=== PATIENT | female | born 1930 | race Caucasian/White ===

== ENCOUNTER → 2017-01-07 | Outpatient (CLI) | payer OTHER ==
[2016-07-18 04:30] VITALS: BP 112/65
--- NOTE | 2017-01-07 13:04 | MG ---
HISTORY: SCREENING Comparison: 07/09/2015 FINDINGS: Bilateral CC and MLO projections of the right and left breast were obtained. Scattered fibroglandul ar tissue is seen to be present. No significant architectural distortion, mass or clustered microca lcifications can be observed to suggest malignancy. No skin thickening or nipple retraction is appr eciated. No pathological lymphadenopathy can be identified. IMPRESSION: NO RADIOGRAPHIC EVIDENCE OF MALIGNANCY. ACR CATEGORY I - NEGATIVE EXAM. FOLLOW-UP EXAM 1 YEAR. Diagnostic CAD was utilized and reviewed. * 0 (ZERO) - ASSESSMENT INCOMPLETE; ADDITIONAL IMAGING IS NEEDED. * 1/ (ONE) - NEGATIVE. * 2/II (TWO) - BENIGN FINDINGS. * 3/III (THREE) - PROBABLY BENIGN FINDING; SHORT INTERVAL FOLLOW-UP SUGGESTED. * 4/IV (FOUR) - SUSPICIOUS ABNORMALITY; BIOPSY SHOULD BE CONSIDERED. * 5/V - HIGHLY SUSPICIOUS OF MALIGNANCY; BIOPSY SHOULD BE PERFORMED. A NEGATIVE X-RAY REPORT SHOULD NOT DELAY BIOPSY IF A DOMINANT OR CLINICALLY SUSPICIOUS MASS IS PRESENT; 4 TO 8 PERCENT OF CANCERS ARE NOT IDENTIFIED BY X-RAY. A NEG ATIVE REPORT MAY REINFORCE THE CLINICAL IMPRESSION. ADENOSIS AND DENSE BREASTS MAY OBSCURE AN UNDER LYING NEOPLASM. Reported By:
== END ==
LOC: RAD 10:54
PROVIDERS: ATTEND Specialist
DX: Z12.31 Encounter for screening mammogram for malignant neoplasm of breast (principal)
CPT/HCPCS: 77067

== ENCOUNTER 2017-03-08 17:25 | Observation (INO) | payer OTHER ==
[2017-03-08 17:46] VITALS: BMI 25.7
--- NOTE | 2017-03-08 17:54 | DR.GENAD ---
HPI - PCP Primary Care Physician: RITA HESS - HPI Comment HPI Comment: DRIVING HOME FROM SHOPPING, PATIENT BECME UNRESPONSIVE BUT WAS BREATHING. SLOWLY STARTED RESPONDING BUT WAS CONFUSE. STILL CONFUSE IN ED. NO PREVIOUS HISTORY. NO HISTORY OF SEIZURS. - Complaint/Symptoms Chief Complaint Doctors Comments: AMS, SYNCOPAL EPISODE. Chief Complaint:: PT TO ER WITH HER FAMILY AND HIS SON STATES SHE WAS UNRESPONSIVE WHEN THEY WERE DRIVING BACK FROM [employer]... FAMILY DENIES ANY PAIN MEDS PT IS SCHEDULED FOR A STRESS TEST WITH RITA HESS IN THE AM .. Self Treatment fo Chief Complaint: PT IS LETHARGIC BS 92 ... - Nurses notes reviewed Nurses Notes Review: Yes - Source History Provided: Patient, Family Member - Mode of Arrival Mode of Arrival: Wheelchair - Timing Onset of Chief Complaint: 03/08/17 Came on: Suddenly - Duration Duration: Since Onset Duration: Hours - Severity Severity: Moderate PMH - PMH Past Medical History: Yes Past Medical History: Hypertension Past Medical History Comment: CHF, DEMENTIA Past Surgical History: No Surgical History: Hysterectomy - Family History History of Family Medical Conditions: No Family Medical History: Cancer, Coronary Artery Disease, Sudden Cardiac - Social History Does patient currently use any type of tobacco product: No Have you used tobacco products in the last 12 months: No Type of Tobacco Use: None Does any household member use tobacco: No Alcohol Use: None Do you use any recreational Drugs:: No Lives With: Family Lives Where: Home - infectious screening In the last 2 months have you had wt loss of >10#?: NO Have you had fever, night sweats or hemotysis?: No Have you traveled outside the country in the last 6 months?: No Isolation: Standard ROS - Review of Systems Constitutional: Weakness, Fatigue. negative: Chills, Fever Eyes: No Symptoms Reported. negative: Eye Pain, Discharge ENTM: No Symptoms Reported. negative: Ear Pain, Nose Discharge, Mouth Pain, Throat Pain Respiratoy: Non-Productive Cough, Short of Breath. negative: Productive Cough, Wheezing, Hemoptysis Cardiovascular: No Symptoms Reported, Syncope. negative: Chest Pain, Edema Gastrointestinal/Abdominal: negative: Abdominal Pain, Diarrhea, Nausea, Vomiting Genitourinary: negative: Dysuria, Frequency, Hematuria Neurological: Headache, Weakness, Dizziness Musculoskeletal: Muscle Pain Integumentary: No Symptoms Reported Hematologic/Lymphatic: No Symptoms Reported Endocrine: No Symptoms Reported All Other Systems: Reviewed and Negative PE - Vital Signs Vitals: Pulse Rate [Apical] 82 Pulse Rate 100 Respiratory Rate 18 Blood Pressure [Left Arm] 163/76 Blood Pressure 159/77 O2 Sat by Pulse Oximetry 99 - General Limitations: No Limitations General Appearance: Alert - Head Head Exam: Normal Inspection - Eyes Eye exam: Normal Appearance - ENT ENT Exam: Normal External Ear Exam External Ear Exam: Normal External Inspection TM/Canal Exam: Bilateral Normal Nose Exam: Normal Nose Exam Mouth Exam: Normal Inspection Throat Exam: Normal Inspection - Neck Neck Exam: Trachea Midline. negative: Tenderness, Meningismus, Lymphadenopathy - Chest Chest Inspection: Symmetric Chest Wall Rise - Respiratory Respiratory Exam: Normal Lung Sounds Bilat, Prolonged Expiratory Phase Respiratory Exam: Bilateral Rhonchi, Lower Rhonchi - Cardiovascular Cardiovascular Exam: Regular Rate, Normal Rhythm, Normal Heart Sounds - Abdominal Exam Abdominal Exam: Normal Bowel Sounds, Soft. negative: Tenderness - Extremities Extremities Exam: Normal Inspection - Back Back Exam: Normal Inspection - Neurologic Neurological Exam: Alert, Other (CONGUSE SLIGHTLY.) - Psychiatric Psychiatric Exam: Agitated - Skin Skin Exam: Normal Color MDM - Additional Information Additional Information Obtained From: Family - Differential Diagnosis Differential Diagnosis: CVA, TIA, SYNCOPAL EPISODE, UA, MD Course - Treatment Treatment: SEE ORDERS. - Consultation Consultation Comments: DISCUSS PATIENT WITH DR. MUNOZ, HE WILL ADMIT PATIENT. - Education/Counseling Education/Counseling: Patient, Family, Education Educated On: Diagnosis, Needs for Follow Up ROR - Labs Reviewed Laboratory Results Reviewed?: Yes Result Diagrams: 03/09/17 05:40 03/09/17 05:40 Laboratory: WBC 8.8 X10^3/uL (3.6-10.0) 03/08/17 18:00 RBC 3.31 X10^6/uL (3.5-5.4) L 03/08/17 18:00 Hgb 11.0 g/dL (12.0-16.0) L 03/08/17 18:00 Hct 32.2 % (36.0-47.0) L 03/08/17 18:00 MCV 97.2 fL (80.0-100.0) 03/08/17 18:00 MCH 33.2 pg (27.0-34.0) 03/08/17 18:00 MCHC 34.1 g/dL (33.0-35.0) 03/08/17 18:00 RDW 14.1 % (11.6-16.5) 03/08/17 18:00 Plt Count 290 X10^3/uL (150.0-450.0) 03/08/17 18:00 MPV 7.6 fL (7.4-11.0) 03/08/17 18:00 Neut % 47.7 % (42.0-75.0) 03/08/17 18:00 Lymph % 37.3 % (21.0-51.0) 03/08/17 18:00 [place] % 10.2 % (0.0-13.0) 03/08/17 18:00 Eos % 3.4 % (0.9-2.9) H 03/08/17 18:00 Baso % 1.4 % (0.2-1.0) H 03/08/17 18:00 Neut # 4.2 x10^3/uL (2.2-4.8) 03/08/17 18:00 Lymph # 3.3 X10^3/uL (1.3-2.9) H 03/08/17 18:00 [place] # 0.9 x10^3/uL (0.3-0.8) H 03/08/17 18:00 Eos # 0.3 x10^3/uL (0.0-0.2) H 03/08/17 18:00 Baso # 0.1 X10^3/uL (0.0-0.1) 03/08/17 18:00 Absolute Nucleated RBC 0.0 /100WBC 03/08/17 18:00 INR Target Range - 03/08/17 18:00 INR 1.05 (0.8-1.3) 03/08/17 18:00 PTT 26.6 SECONDS (22.9-36.5) 03/08/17 18:00 PTT Comment - 03/08/17 18:00 Sodium 144 mmol/L (136-145) 03/08/17 18:00 Corrected Sodium TNP 03/08/17 18:00 Potassium 4.5 mmol/L (3.5-5.1) 03/08/17 18:00 Chloride 107 mmol/L (98-107) 03/08/17 18:00 Carbon Dioxide 27.9 mmol/L (21-32) 03/08/17 18:00 BUN 15 mg/dL (7-18) 03/08/17 18:00 Creatinine 1.20 mg/dL (0.55-1.02) H 03/08/17 18:00 Est GFR (MDRD) Af Amer 55 (>60) L 03/08/17 18:00 Est GFR (MDRD) Non-Af 45 (>60) L 03/08/17 18:00 Glucose 86 mg/dL (65-99) 03/08/17 18:00 Calcium 9.4 mg/dL (8.5-10.1) 03/08/17 18:00 Corrected Calcium TNP 03/08/17 18:00 Total Bilirubin 0.30 mg/dL (0.2-1.0) 03/08/17 18:00 AST 17 Units/L (15-37) 03/08/17 18:00 ALT 20 Units/L (12-78) 03/08/17 18:00 Alkaline Phosphatase 58 Units/L (46-116) 03/08/17 18:00 Creatine Kinase 71 Units/L (26-192) 03/08/17 18:00 CK-MB (CK-2) < 1.0 ng/mL (0-4.0) 03/08/17 18:00 CK/CKMB % Calc 1.4 % (<4) 03/08/17 18:00 Troponin I < 0.02 ng/mL (0-1.5) 03/08/17 18:00 B-Natriuretic Peptide 147 pg/mL (0-79) H 03/08/17 18:00 Total Protein 7.0 g/dL (6.4-8.2) 03/08/17 18:00 Albumin 3.4 g/dL (3.4-5.0) 03/08/17 18:00 Globulin 3.6 g/dL (2.5-4.5) 03/08/17 18:00 Albumin/Globulin Ratio 0.9 Ratio (1.1-2.1) L 03/08/17 18:00 Specimen Type Catherized urine 03/08/17 18:13 Urine Color Yellow (YELLOW) 03/08/17 18:13 Urine Appearance Clear (CLEAR) 03/08/17 18:13 Urine pH 7.0 (5.0 - 8.0) 03/08/17 18:13 Ur Specific [place] 1.005 (1.000-1.030) 03/08/17 18:13 Urine Protein Negative (NEGATIVE) 03/08/17 18:13 Urine Glucose (UA) Negative (NEGATIVE) 03/08/17 18:13 Urine Ketones Negative (NEGATIVE) 03/08/17 18:13 Urine Occult Blood 1+ (NEGATIVE) 03/08/17 18:13 Urine Nitrite Negative (NEGATIVE) 03/08/17 18:13 Urine Bilirubin Negative (NEGATIVE) 03/08/17 18:13 Urine Urobilinogen Normal (NORMAL) 03/08/17 18:13 Ur Leukocyte Esterase 1+ (NEGATIVE) 03/08/17 18:13 Urine RBC 0-3 /HPF (NEGATIVE) 03/08/17 18:13 Urine WBC 0-3 /HPF (NEGATIVE) 03/08/17 18:13 Ur Squamous Epith Cells Rare /HPF (NEGATIVE) 03/08/17 18:13 Urine Bacteria Trace /HPF (NEGATIVE) 03/08/17 18:13 Ur Culture Indicated? No/not indicated 03/08/17 18:13 - XRAY XRAY Interpreted by: Radiologist XRAY Findings: REPORT DISCUSS WITH FAMILY. - EKG Rhythm: NSR (EKG NOTED) - Diagnosis Discharge Problem: Syncopal episodes Qualifiers: Syncope type: unspecified Qualified Code(s): R55 - Syncope and collapse Altered mental state Qualifiers: Altered mental status type: transient alteration of awareness Qualified Code(s) : R40.4 - Transient alteration of awareness - Discharge Plan Disposition: 09 ADMITTED INPATIENT Condition: Stable - Follow ups/Referrals - Instructions
[2017-03-08 18:08] LABS: BASOPHILS # (AUTO) 0.1 X10^3/uL (0.0-0.1); BASOPHILS % (AUTO) 1.4 % (0.2-1.0); EOSINOPHILS # (AUTO) 0.3 x10^3/uL (0.0-0.2); EOSINOPHILS % (AUTO) 3.4 % (0.9-2.9); HEMATOCRIT 32.2 % (36.0-47.0); LYMPHOCYTES # (AUTO) 3.3 X10^3/uL (1.3-2.9); LYMPHOCYTES % (AUTO) 37.3 % (21.0-51.0); MEAN CORPUSCULAR HEMOGLOBIN 33.2 pg (27.0-34.0); MEAN CORPUSCULAR HGB CONC 34.1 g/dL (33.0-35.0); MEAN CORPUSCULAR VOLUME 97.2 fL (80.0-100.0); MEAN PLATELET VOLUME 7.6 fL (7.4-11.0); MONOCYTES # (AUTO) 0.9 x10^3/uL (0.3-0.8); MONOCYTES % (AUTO) 10.2 % (0.0-13.0); NEUTROPHILS # (AUTO) 4.2 x10^3/uL (2.2-4.8); NEUTROPHILS % (AUTO) 47.7 % (42.0-75.0); PLATELET COUNT 290 X10^3/uL (150.0-450.0); RED BLOOD COUNT 3.31 X10^6/uL (3.5-5.4); RED CELL DISTRIBUTION WIDTH 14.1 % (11.6-16.5); WHITE BLOOD COUNT 8.8 X10^3/uL (3.6-10.0)
--- NOTE | 2017-03-08 18:30 | RAD ---
HISTORY: Pain Study: Portable chest Comparison: None Findings: The heart is normal. The pulmonary vessels are normal. The lungs are mildly hyperinflated. There is o verlying EKG lead artifact. No obvious consolidation or effusion is seen. IMPRESSION: Overlying EKG lead artifact with no acute abnormality seen. Reported By:
[2017-03-08 18:31] LABS: BLOOD UREA NITROGEN 15 mg/dL (7-18); CALCIUM 9.4 mg/dL (8.5-10.1); CARBON DIOXIDE 27.9 mmol/L (21-32); CHLORIDE 107 mmol/L (98-107); SODIUM 144 mmol/L (136-145); TROPONIN I < 0.02 ng/mL (0-1.5); eGFR BLACK RACES 55 (>60); eGFR NON BLACK RACES 45 (>60)
[2017-03-08 18:34] LABS: BILIRUBIN,URINE NEGATIVE (NEGATIVE); BLOOD/HEMOGLOBIN,URINE 1+ (NEGATIVE); GLUCOSE, URINE NEGATIVE (NEGATIVE); KETONES,URINE NEGATIVE (NEGATIVE); LEUKOCYTE ESTERASE ,URINE 1+ (NEGATIVE); NITRITES,URINE NEGATIVE (NEGATIVE); PROTEIN,URINE NEGATIVE (NEGATIVE); UROBILINOGEN,URINE NORMAL (NORMAL)
[2017-03-08 18:43] LABS: APPEARANCE,URINE CLEAR (CLEAR); BACTERIA,URINE TRACE /HPF (NEGATIVE); COLOR,URINE YELLOW (YELLOW); RBC,URINE 0-3 /HPF (NEGATIVE); SQUAMOUS EPITHELIAL CELL,UR RARE /HPF (NEGATIVE)
[2017-03-08 18:46] LABS: ALANINE AMINOTRANSFERASE 20 Units/L (12-78); ALBUMIN 3.4 g/dL (3.4-5.0); ALKALINE PHOSPHATASE 58 Units/L (46-116); ASPARTATE AMINO TRANSFERASE 17 Units/L (15-37); CREATINE KINASE 71 Units/L (26-192); CREATINE KINASE MB < 1.0 ng/mL (0-4.0)
[2017-03-08 18:47] LABS: CKMB % 1.4 % (<4)
[2017-03-08 18:48] LABS: B-TYPE NATRIURETIC PEPTIDE 147 pg/mL (0-79)
--- NOTE | 2017-03-08 20:07 | CT ---
CT brain without contrast Indication: Altered mental status Comparison: none available Technique: Multiple axial images of the brain were obtained from the skull base to the vertex without administra tion of IV contrast. Coronal and sagittal images were also provided. Radiation dose reduction techniques were performed utilizing adjustment for MA/kVP based on patient body size. Findings: There is moderate generalized cerebral atrophy along with bilateral periventricular and deep white ma tter hypoattenuation is nonspecific however likely represent sequela chronic microvascular ischemic d isease. There is commensurate ex vacuo ventricular dilatation. No acute intraparenchymal hemorrhage or mass can be identified. No extra-axial fluid collections are seen. No alteration in the attenuation of the brain parenchyma can be identified to suggest acute o r subacute ischemic change. The ventricular system is symmetric and nondilated. The extracranial st ructures are grossly unremarkable. IMPRESSION: 1. No acute intracranial process is identified. 2. Generalized cerebral atrophy, moderate bilateral periventricular deep white matter hypoattenuation are likely sequela of chronic microvascular ischemic disease. There is commensurate ex vacuo ventric ular dilatation given the degree of cerebral atrophy. Reported By:
[2017-03-08] MEDS: NS 1000 ML 1,000 ML IV SCH (21:58)
[2017-03-09 02:11] LABS: CKMB % 1.5 % (<4); CREATINE KINASE 65 Units/L (26-192); CREATINE KINASE MB < 1.0 ng/mL (0-4.0); TROPONIN I < 0.02 ng/mL (0-1.5)
[2017-03-09 06:00] LABS: ALANINE AMINOTRANSFERASE 17 Units/L (12-78); ALBUMIN 2.9 g/dL (3.4-5.0); ALKALINE PHOSPHATASE 46 Units/L (46-116); ASPARTATE AMINO TRANSFERASE 12 Units/L (15-37); BLOOD UREA NITROGEN 13 mg/dL (7-18); CALCIUM 8.9 mg/dL (8.5-10.1); CARBON DIOXIDE 28.2 mmol/L (21-32); CHLORIDE 109 mmol/L (98-107); CHOL/HDL RATIO 2.4 (0.0-5.0); CHOLESTEROL 134 mg/dL (0-200); COR CA(FOR HYPOALB) 9.8 mg/dL (8.5-10.1); CREATININE 1.14 mg/dL (0.55-1.02); HDL CHOLESTEROL 55 mg/dL (40-60); MAGNESIUM 1.7 mg/dL (1.7-2.9); SODIUM 144 mmol/L (136-145); TOTAL PROTEIN 5.9 g/dL (6.4-8.2); TRIGLYCERIDES 85 mg/dL (0-150); eGFR BLACK RACES 58 (>60); eGFR NON BLACK RACES 48 (>60)
[2017-03-09 06:06] LABS: BASOPHILS # (AUTO) 0.1 X10^3/uL (0.0-0.1); BASOPHILS % (AUTO) 1.3 % (0.2-1.0); EOSINOPHILS # (AUTO) 0.4 x10^3/uL (0.0-0.2); EOSINOPHILS % (AUTO) 6.1 % (0.9-2.9); HEMATOCRIT 28.3 % (36.0-47.0); HEMOGLOBIN 9.7 g/dL (12.0-16.0); LYMPHOCYTES # (AUTO) 2.7 X10^3/uL (1.3-2.9); LYMPHOCYTES % (AUTO) 39.9 % (21.0-51.0); MEAN CORPUSCULAR HEMOGLOBIN 33.5 pg (27.0-34.0); MEAN CORPUSCULAR HGB CONC 34.4 g/dL (33.0-35.0); MEAN CORPUSCULAR VOLUME 97.4 fL (80.0-100.0); MONOCYTES # (AUTO) 0.9 x10^3/uL (0.3-0.8); MONOCYTES % (AUTO) 13.1 % (0.0-13.0); NEUTROPHILS # (AUTO) 2.7 x10^3/uL (2.2-4.8); NEUTROPHILS % (AUTO) 39.6 % (42.0-75.0); PLATELET COUNT 231 X10^3/uL (150.0-450.0); RED CELL DISTRIBUTION WIDTH 13.6 % (11.6-16.5); WHITE BLOOD COUNT 6.8 X10^3/uL (3.6-10.0)
[2017-03-09 06:18] LABS: CKMB % 1.8 % (<4); CREATINE KINASE 56 Units/L (26-192); CREATINE KINASE MB < 1.0 ng/mL (0-4.0); TROPONIN I 0.02 ng/mL (0-1.5)
[2017-03-09] MEDS ORDERED: TYLENOL 325 MG TAB PO PRN (09:26)
[2017-03-09] MEDS ORDERED: NORCO 5/325 MG TAB PO PRN (09:26)
[2017-03-09] MEDS: FLONASE NASAL SPRAY ENOSTRIL SCH (09:54)
[2017-03-09] MEDS ORDERED: LASIX PO PRN (10:12)
[2017-03-09] MEDS ORDERED: PATIENT'S HOME MEDICATION (Ondansetron [Zofran Odt 8 Mg] 1 TAB) PO SCH (10:15)
[2017-03-09] MEDS ORDERED: FERROUS FUMARATE PO SCH (10:15)
[2017-03-09] MEDS ORDERED: PATIENT'S HOME MEDICATION (Oxybutynin Chloride [Ditropan Xl] 10 MG) PO SCH (10:15)
[2017-03-09] MEDS ORDERED: PATIENT'S HOME MEDICATION (Pravastatin Sodium [Pravastatin Sodium] 10 MG) PO SCH (10:15)
[2017-03-09] MEDS ORDERED: ZOFRAN TAB 4 MG PO PRN (10:40)
[2017-03-09] MEDS: ZESTRIL TAB 10 MG PO SCH (11:16)
[2017-03-09] MEDS: NS 1000 ML 1,000 ML IV SCH (11:16)
[2017-03-09] MEDS: PROTONIX TAB 40 MG PO SCH ×2 (11:16→20:44)
--- NOTE | 2017-03-09 11:26 | MRI ---
HISTORY: Altered mental status. Syncope. Noncontrast MRI examination of the brain. Technique: Multiplanar multi-sequence MRI of the brain was obtained utilizing standard or protocol. Sagittal and axial T1 weighted images were obtained. Axial T2 and flair weighted images were perform ed as well. Axial diffusion weighted and ADC trace mapping was performed. Comparison: Head CT examin ation dated March 08, 2017 Findings: The midline structures appear unremarkable. There is no evidence for cerebellar tonsillar ectopia. There is moderate sulcal and cisternal prominence as well as scattered foci of periventricul ar white matter T2 signal alteration seen in the high and mid convexities, which is likely due to chr onic white matter microvascular disease from longstanding hypertension or diabetes in this setting. N o significant midline shift or herniation syndrome is observed. The evaluation of the brain parenchym a demonstrates no abnormal signal characteristics to suggest intraparenchymal mass or hemorrhage. No extra-axial fluid collections are observed. The ventricular system appears symmetric and nondilated . The CP angle is normal in its appearance without brainstem mass or evidence for acoustic neuroma. The flow voids on both T1 and T2 weighted imaging appear unremarkable. Evaluation of the diffusion weighted imaging does not demonstrate abnormal signal characteristics to suggest acute ischemic pate ge. The extracranial structures are unremarkable. The paranasal sinuses are clear. No other abnormal ities are seen. IMPRESSION: No acute intracranial process, hemorrhage, mass lesion, or acute CVA appreciated. Chronic-appearing periventricular white matter microvascular disease and age related cerebral senesce nt changes. Paranasal sinuses and mastoids are also relatively clear. Reported By:
--- NOTE | 2017-03-09 11:44 | DR.H&P ---
H&P - History & Physical for Day of: H&P Date: 03/08/17 - Chief Complaint Chief Complaint: AMS, SYNCOPAL EPISODE - Allergies Allergies/Adverse Reactions: Allergies Allergy/AdvReac Type Severity Reaction Status Date / Time No Known Drug Allergies Allergy Verified 03/08/17 17:38 - History of Present Illness History of Present Illness: Ms. Henderson is a 87 year old patient of ours who presented to the emergency room with reports of altered mental status. Patient' s son stated that they were on their way home from [place] and when they got about 30 minutes away from home he noticed that patient started staring blankly out the window. He stated that patient also was not speaking. Patient's son stated that once they got home patient didn't get out of the car. Patient's son stated that when he went to see why she wasn't getting out of the car she didn' t respond to him. Patient's son stated that if patient didn't have on a seatbelt that she would have fallen out of the car. On examination, patient was noted with confusion. Patient does not speak when spoken to. Eyes are open, PERRLA. Lungs are clear to auscultation bilaterally. On arrival to er, vitals were 98.7, 86, 16, 97% RA, 165/73. Labs and CT/xray were obtained. Abnormal lab values include the following: RBC 3.31, Hgb 11.0, Hct 32.2, Creatinine 1.20, GFR af 55, GFR non 45, BNP 147, A/G Ratio 0.9. Urinalysis reported Catherized, Occult Blood 1+, Leuk Est 1+, RBC 0-3, WBC 0-3, Bacteria Trace. EKG reported Sinus Rhythm. Rate=83. A brain CT reported No acute intracranial process is identified, Generalized cerebral atrophy, moderate bilateral periventricular deep white matter hypoattenuation are likely sequela of chronic microvascular ischemic disease. There is commensurate ex vacuoventricular dilatation given the degree of cerebral atrophy. Chest xray reported Overlying EKG lead artifact with no acute abnormality seen. Patient admitted to the hospital as observation for further evaluation and treatment. Will follow up with labs in the morning. - Past Medical History Past Medical History: Anemia, Anxiety, CHF, Coronary Artery Disease, Depression , GERD, Hypertension, Hypothyroidism Additional Medical History: CATARACTS, TIA, - Past Surgical History Surgical History: Hysterectomy - Family History Family Medical History: Cancer, Coronary Artery Disease, Sudden Cardiac - Social History Does patient currently use any type of tobacco product: No Have you used tobacco products in the last 12 months: No Type of Tobacco Use: None Does any household member use tobacco: No Alcohol Use: None Drug Use: None - Medications Home Medications: Amitriptyline HCl 1 tab PO HS 03/09/17 [History Confirmed 03/09/17] Ferrous Fumarate [Hemocyte] 1 tab PO DAILY 03/09/17 [History Confirmed 03/09/17] Lisinopril 10 mg PO DAILY 03/09/17 [History Confirmed 03/09/17] Ondansetron [Zofran ODT 8 mg] 1 tab PO Q8H 03/09/17 [History Confirmed 03/09/17] Oxybutynin Chloride [Ditropan Xl] 1 tab PO DAILY 03/09/17 [History Confirmed ] Pantoprazole Sodium [Protonix] 1 tab PO DAILY 03/09/17 [History Confirmed ] Potassium Chloride [K-Tab ER] 1 tab PO DAILY 03/09/17 [History Confirmed ] - Review of Systems Constitutional: Weakness Eyes: No Symptoms Reported ENT: No Symptoms Reported Respiratory: No Symptoms Reported Cardiovascular: No Symptoms Reported Gastrointestinal: No Symptoms Reported Genitourinary: No Symptoms Reported Musculoskeletal: Neck Pain Skin: No Symptoms Reported Neurological: See HPI, Weakness, Incoordination, Other (SYNCOPE) - Physical Exam Vital Signs: Temperature 98.0 F Pulse Rate [Apical] 76 Pulse Rate 100 Respiratory Rate 20 Blood Pressure [Left Arm] 132/62 Blood Pressure 159/77 O2 Sat by Pulse Oximetry 96 Oriented: Unable to test Eyes: Normal Ear: Normal Nose: Normal Throat: Normal Respiratory: Clear Throughout Cardiovascular: Normal : Normal Auscultation: Bowel Sounds: Normal Palpation: Normal Tenderness: Normal Skin: Normal Psychiatric: Other (AMS, UNABLE TO TEST ) Mood Description: Calm Affect: Quiet Speech Pattern: Delayed - Assessment/Plan (1) Syncopal episodes Qualifiers: Syncope type: unspecified Qualified Code(s): R55 - Syncope and collapse Status: Acute Plan: TELEMETRY, CONTINUE TO MONITOR (2) Altered mental state Qualifiers: Altered mental status type: transient alteration of awareness Qualified Code(s): R40.4 - Transient alteration of awareness Status: Acute Plan: CONTINUE TO MONITOR
[2017-03-09] MEDS: OXYBUTYNIN CHLORIDE ER PO SCH (12:10)
[2017-03-09] MEDS: SYNTHROID 100 mcg TAB PO SCH (16:06)
[2017-03-09] MEDS ORDERED: ZOLOFT PO SCH (21:00)
[2017-03-09] MEDS ORDERED: PATIENT'S HOME MEDICATION (Amitriptyline Hcl [Amitriptyline Hcl] 1 TAB) PO SCH (21:00)
[2017-03-09] MEDS ORDERED: PRAVACHOL PO SCH (21:00)
[2017-03-09] MEDS ORDERED: ELAVIL PO SCH (21:00)
[2017-03-10 05:18] LABS: BASOPHILS # (AUTO) 0.1 X10^3/uL (0.0-0.1); BASOPHILS % (AUTO) 1.2 % (0.2-1.0); EOSINOPHILS # (AUTO) 0.3 x10^3/uL (0.0-0.2); EOSINOPHILS % (AUTO) 4.2 % (0.9-2.9); HEMATOCRIT 32.1 % (36.0-47.0); HEMOGLOBIN 10.7 g/dL (12.0-16.0); LYMPHOCYTES # (AUTO) 2.9 X10^3/uL (1.3-2.9); LYMPHOCYTES % (AUTO) 35.9 % (21.0-51.0); MEAN CORPUSCULAR HGB CONC 33.3 g/dL (33.0-35.0); MEAN CORPUSCULAR VOLUME 99.1 fL (80.0-100.0); MONOCYTES % (AUTO) 12.1 % (0.0-13.0); NEUTROPHILS # (AUTO) 3.7 x10^3/uL (2.2-4.8); NEUTROPHILS % (AUTO) 46.6 % (42.0-75.0); PLATELET COUNT 266 X10^3/uL (150.0-450.0); RED BLOOD COUNT 3.24 X10^6/uL (3.5-5.4); RED CELL DISTRIBUTION WIDTH 13.8 % (11.6-16.5); WHITE BLOOD COUNT 7.9 X10^3/uL (3.6-10.0)
[2017-03-10 05:32] LABS: ALANINE AMINOTRANSFERASE 18 Units/L (12-78); ALBUMIN 3.2 g/dL (3.4-5.0); ALKALINE PHOSPHATASE 53 Units/L (46-116); ASPARTATE AMINO TRANSFERASE 13 Units/L (15-37); BLOOD UREA NITROGEN 13 mg/dL (7-18); CALCIUM 9.1 mg/dL (8.5-10.1); CARBON DIOXIDE 28.5 mmol/L (21-32); CHLORIDE 109 mmol/L (98-107); COR CA(FOR HYPOALB) 9.7 mg/dL (8.5-10.1); SODIUM 144 mmol/L (136-145); TOTAL PROTEIN 6.5 g/dL (6.4-8.2); eGFR BLACK RACES 50 (>60); eGFR NON BLACK RACES 41 (>60)
[2017-03-10] MEDS: NS 1000 ML 1,000 ML IV SCH ×2 (06:27→13:44)
--- NOTE | 2017-03-10 07:26 | CT ---
HISTORY: Questionable dens fracture on brain MRI Study: CT cervical spine without contrast Comparison: MRI of the brain done March 08, 2017 Technique: Multiple axial images of the cervical spine were obtained from the skull base to the thora cic inlet without administration of IV contrast. Sagittal and coronal reformats were performed and r eviewed. Dose reduction techniques utilized automatic exposure control. Findings: Alignment of the cervical spine is maintained. No evidence for acute cortical disruption or subluxat ion can be seen. There is a small bony fragment seen just caudal to the anterior body at C1. This daniel ears well corticated and is likely degenerative. There is no indication of dens fracture. The central canal remains free of compromise from bony fragments or significant soft tissue encroachment. The p osterior elements appear unremarkable. The prevertebral soft tissues are normal in their appearance. In addition, the surrounding paraspinous soft tissues are unremarkable. Severe degenerative disc di sease is present at C5-6 and C6-7. IMPRESSION: Intact appearing dense. No evidence of fracture is seen. Severe degenerative disc disease at C5-6 and C6-7. Reported By:
[2017-03-10] MEDS ORDERED: FERROUS SULFATE PO SCH (09:00)
[2017-03-10] MEDS: OXYBUTYNIN CHLORIDE ER PO SCH (09:18)
[2017-03-10] MEDS: PROTONIX TAB 40 MG PO SCH (09:18)
[2017-03-10] MEDS: ZESTRIL TAB 10 MG PO SCH (09:19)
[2017-03-10] MEDS: FLONASE NASAL SPRAY ENOSTRIL SCH (09:19)
--- NOTE | 2017-03-10 11:00 | MRI ---
HISTORY: Neck pain and neck injury. Noncontrast MRI examination of the cervical spine. Technique: Sagittal T1, sagittal T2, axial T2 weighted images were obtained. Findings: Alignment of the cervical spine is maintained. There is moderate spondylosis and facet DJD seen from C3-C5 with multilevel disc osteophyte complexes and diffuse cervical disc desiccation. Ther e is no evidence for an acute fracture or subluxation. No aggressive bone marrow lesion is seen. Ther e is no evidence for cerebral tonsillar ectopia. The posterior elements appear diffusely intact. Ther e is no evidence for cord expansion, cord edema, or abnormal cord signal. No intrathecal mass lesions or intrathecal hemorrhage is seen. C2 -- C3: No significant disc pathology or foraminal/spinal canal stenosis. C3 -- C4: Broad-based, posterior, disc osteophyte complex which combines with facet DJD to create mod erate spinal canal stenosis and moderate bilateral foraminal narrowing. C4 -- C5: Broad-based, posterior, disc osteophyte complex which combines with facet DJD to create mil d central spinal canal narrowing and mild bilateral foraminal narrowing. C5 -- C6: No significant disc pathology or foraminal/spinal canal stenosis. C6 -- C7: No significant disc pathology or foraminal/spinal canal stenosis. C7 -- T1: No significant disc pathology or foraminal/spinal canal stenosis. IMPRESSION: No acute fracture, subluxation, or abnormal ligamentous signal seen. Mild to moderate degenerative cervical spondylosis with C3-C5 central disc osteophyte complexes and f acet DJD which creates mild to moderate foraminal and spinal canal stenosis at these levels, as above . No evidence for cervical cord myelomalacia, however. Reported By:
[2017-03-10 16:03] VITALS: BP 157/70
[2017-03-10] MEDS: SYNTHROID 100 mcg TAB PO SCH (16:35)
== END 2017-03-10 16:45 | disposition home or self-care (01) ==
LOC: ER 17:25 → MED/SURG 21:16
PROVIDERS: ADMIT Internal Medicine; ATTEND Internal Medicine
DX: R55 Syncope and collapse (principal); R40.4 Transient alteration of awareness; D64.89 Other specified anemias; R74.8 Abnormal levels of other serum enzymes; M54.2 Cervicalgia; R94.30 Abnormal result of cardiovascular function study, unspecified; Z79.899 Other long term (current) drug therapy; R06.02 Shortness of breath; R73.09 Other abnormal glucose
CPT/HCPCS: 36415; 51701; 70450; 70551; 71010; 72125; 72141; 80053; 80061; 81001; 82550; 82553; 83735; 83880; 84484; 85025; 85610; 85730; 93005; 94760; 96365; 99284; A4222; G0378

== ENCOUNTER 2017-06-30 22:44 | Observation (INO) | payer OTHER ==
[2017-06-30] MEDS ORDERED: MORPHINE SULFATE INJ 4 MG ONE (22:56)
[2017-06-30] MEDS ORDERED: MORPHINE SULFATE INJ 2 MG INJ IVP ONE (22:59)
--- NOTE | 2017-06-30 23:02 | DR.TRAUMA ---
HPI - Time Seen Time seen: 22:55 - Complaint/Symptom Chief Complaint Doctors Comments: Son reports that patient went to the bathroom , he heard a lout outcry; went to the bath room patient was lying her head was on the bathtub and her back on on the concrete step up. She continues to moan as if she is in pain. Son reports that patient has dementia and can not tell for sure her degree of pain. Chief Complaint:: head injury from a fall - Source History Provided: Family Member - Mode of Arrival Mode of Arrival: Wheelchair - Timing Onset of Chief Complaint: 06/30/17 PMH - PMH Past Medical History: Yes Past Medical History: Anemia, Anxiety, CHF, Coronary Artery Disease, Depression , GERD, Hypertension, Hypothyroidism Past Surgical History: Yes Surgical History: Hysterectomy - Family History History of Family Medical Conditions: Yes Family Medical History: Cancer, Coronary Artery Disease, Sudden Cardiac - Social History Alcohol Use: None Do you use any recreational Drugs:: No Lives With: Family Lives Where: Home - infectious screening In the last 2 months have you had wt loss of >10#?: NO Have you had fever, night sweats or hemotysis?: No Have you traveled outside the country in the last 6 months?: No Isolation: Standard ROS - Review of Systems Constitutional: No Symptoms Reported Eyes: No Symptoms Reported ENTM: No Symptoms Reported Respiratoy: No Symptoms Reported Cardiovascular: No Symptoms Reported Gastrointestinal/Abdominal: No Symptoms Reported Genitourinary: No Symptoms Reported Neurological: See HPI Musculoskeletal: Back Pain, Other (head trauma -large hematoma) Integumentary: No Symptoms Reported Hematologic/Lymphatic: No Symptoms Reported Endocrine: No Symptoms Reported Psychiatric: No Symptoms Reported, Other (Dementia) All Other Systems: Reviewed and Negative Unable to Obtain Due To: Altered mental status PE - Vitals Vitals: Temperature 98.4 F Pulse Rate 79 Respiratory Rate 22 Blood Pressure [Right Arm] 157/70 Blood Pressure [Left Arm] 130/62 Blood Pressure 150/96 O2 Sat by Pulse Oximetry 97 - General Limitations: Altered Mental Status General Appearance: In Distress - Head Head Exam: Normal Inspection (A large hematoma right occipital parietal area) Head Exam Physical: Hematoma. negative: Abrasion, Raccoon Eyes, Pena's Sign, CSF Rhinorrhea, CSF Otorrhea - Eyes Eye exam: Normal Appearance, PERRL Eyelids: Normal Inspection: Bilateral Sclera/Conjunctival: Normal Inspection: Bilateral Anterior chamber: Cell/flare: Bilateral Posterior Chamber: Deferred: Bilateral - ENT ENT Exam: Normal Exam, Normal Oropharynx External Ear Exam: Normal External Inspection TM/Canal Exam: Bilateral Normal Nose Exam: Normal Nose Exam Mouth Exam: Normal Inspection Teeth Exam: Other (dentures) Throat Exam: Normal Inspection - Neck Neck Exam: Normal Inspection Neck Exam Focused: Normal Inspection - Chest Chest Inspection: Normal Inspection Expanded Chest Exam: negative: Crepitus, Laceration, Abrasion, Ecchymosis, Wound , Penetrating Wound, Surgical Incision, Other - Respiratory Respiratory Exam: Normal Lung Sounds Bilat Respiratory Exam: Bilateral Clear to Auscultation - Cardiovascular Cardiovascular Exam: Regular Rate, Normal Rhythm - Abdominal Exam Abdominal Exam: Normal Inspection Abdominal Tenderness: negative: RUQ, RLQ, LUQ, LLQ, Epigastrium, Suprapubic, Diffuse, Mild, Moderate, Severe, Other - Extremities Extremities Exam: Normal Inspection, Full ROM - Upper Extremities Shoulder Exam: Normal Inspection Arm Exam: Normal Inspection Elbow Exam: Normal Inspection Forearm Exam: Normal Inspection, Full ROM Hand Exam: Normal Inspection Upper Ext. Vascular Exam: Capillary Refill - Lower Extremities Hip/Pelvis Exam: Normal Inspection Upper Leg Exam: Normal Inspection Knee Exam: Normal Inspection Lower Leg Exam: Normal Inspection Ankle Exam: Normal Inspection Foot/Toe Exam: Normal Inspection Neurovascular/Tendon Exam: Normal Capillary Refill Course - Reevaluation 1st: Unchanged - Consultation Called: 00:15 (Dr Peralta agreed to observation) ROR - Labs Reviewed Result Diagrams: 06/30/17 23:50 06/30/17 23:50 Laboratory: WBC 12.6 X10^3/uL (3.6-10.0) H 06/30/17 23:50 RBC 3.39 X10^6/uL (3.5-5.4) L 06/30/17 23:50 Hgb 11.1 g/dL (12.0-16.0) L 06/30/17 23:50 Hct 32.8 % (36.0-47.0) L 06/30/17 23:50 MCV 96.5 fL (80.0-100.0) 06/30/17 23:50 MCH 32.7 pg (27.0-34.0) 06/30/17 23:50 MCHC 33.9 g/dL (33.0-35.0) 06/30/17 23:50 RDW 13.3 % (11.6-16.5) 06/30/17 23:50 Plt Count 246 X10^3/uL (150.0-450.0) 06/30/17 23:50 MPV 8.4 fL (7.4-11.0) 06/30/17 23:50 Neut % 65.4 % (42.0-75.0) 06/30/17 23:50 Lymph % 19.4 % (21.0-51.0) L 06/30/17 23:50 [place] % 10.8 % (0.0-13.0) 06/30/17 23:50 Eos % 3.4 % (0.9-2.9) H 06/30/17 23:50 Baso % 1.0 % (0.2-1.0) 06/30/17 23:50 Neut # 8.3 x10^3/uL (2.2-4.8) H 06/30/17 23:50 Lymph # 2.4 X10^3/uL (1.3-2.9) 06/30/17 23:50 [place] # 1.4 x10^3/uL (0.3-0.8) H 06/30/17 23:50 Eos # 0.4 x10^3/uL (0.0-0.2) H 06/30/17 23:50 Baso # 0.1 X10^3/uL (0.0-0.1) 06/30/17 23:50 Absolute Nucleated RBC 0.0 /100WBC 06/30/17 23:50 Sodium 144 mmol/L (136-145) 06/30/17 23:50 Corrected Sodium TNP 06/30/17 23:50 Potassium 3.9 mmol/L (3.5-5.1) 06/30/17 23:50 Chloride 110 mmol/L (98-107) H 06/30/17 23:50 Carbon Dioxide 23.0 mmol/L (21-32) 06/30/17 23:50 BUN 24 mg/dL (7-18) H 06/30/17 23:50 Creatinine 1.21 mg/dL (0.55-1.02) H 06/30/17 23:50 Est GFR (MDRD) Af Amer 54 (>60) L 06/30/17 23:50 Est GFR (MDRD) Non-Af 45 (>60) L 06/30/17 23:50 Glucose 105 mg/dL (65-99) H 06/30/17 23:50 Calcium 9.2 mg/dL (8.5-10.1) 06/30/17 23:50 Corrected Calcium TNP 06/30/17 23:50 Total Bilirubin 0.20 mg/dL (0.2-1.0) 06/30/17 23:50 AST 10 Units/L (15-37) L 06/30/17 23:50 ALT 19 Units/L (12-78) 06/30/17 23:50 Alkaline Phosphatase 57 Units/L (46-116) 06/30/17 23:50 Total Protein 7.2 g/dL (6.4-8.2) 06/30/17 23:50 Albumin 3.5 g/dL (3.4-5.0) 06/30/17 23:50 Globulin 3.7 g/dL (2.5-4.5) 06/30/17 23:50 Albumin/Globulin Ratio 0.9 Ratio (1.1-2.1) L 06/30/17 23:50 - XRAY XRAY Interpreted by: Radiologist (CT Brain: Mild generalized cerebral atrophy with moderate bilateral periventricular and deep white matter hyypoattenuation. There is encephalomalacia within the medial left occipital lobe consistent with remote infarct. Similar findings slightly less conspicuous on the right also suggests remote infarct. Moderate size right parietal scalp hematoma without subjacent fracture. No extra axial hemorrhage. Ventricles are dilated however commenced with the degree of cerebral atrophy. Orbits are zeyad. The sinuses and mastoid air cells are clear. Impression: Moderate size right parietal scalp hematoma without subjacent fracture. No acute intracranial hemorrhage. Generalized cerebral atrophy with moderate bilateral periventricular and deep white matter hypoattenuation is likely in the setting of chronic microvascuolar ischemic disease. Suspected bilateral remote medial occiipital lobe infarcts. Lumbar: No acute fracture identified within the lumbar spine. There is a chronic bilateral L5 spondylolysis with grade 1 anterolisthesis of L5 and associated moderate facet arthropathy at L4-5 and L5- S1 all of which are on a degenerative/chronic basis. Spondylosis and facet arthropathy L4-5 and L5-S1 cause moderate spinal canal stenosis with bilateral mild to moderate bony neural foramina narrowing at L4-5. There is mild spinal canal stenosis with severe left and moderate to severe right sided bony neural foraminal stenosis at L5-S1. Consider correlation with nonemergent follow-up lumbar spine MRI for further evaluation as clinically warranted.) - Diagnosis Discharge Problem: Traumatic hematoma of scalp Qualifiers: Encounter type: initial encounter Qualified Code(s): S00.03XA - Contusion of scalp, initial encounter - Discharge Plan Condition: Stable - Follow ups/Referrals Follow ups/Referrals: Evens Peralta [Primary Care Provider] - 3 days - Instructions
--- NOTE | 2017-06-30 23:52 | CT ---
CT brain without contrast Indication: Fall with head trauma Comparison: 03/08/2017 Technique: Multiple axial images of the brain were obtained from the skull base to the vertex without administra tion of IV contrast. Findings: Mild generalized cerebral atrophy with moderate bilateral periventricular and deep white matter hypoa ttenuation. There is encephalomalacia within the medial left occipital lobe consistent with remote in farct. Similar finding slightly less conspicuous on the right also suggests remote infarct. Moderate-size right parietal scalp hematoma without subjacent fracture. No extra-axial hemorrhage. Ve ntricles are dilated however commenced with the degree of cerebral atrophy. Orbits are normal. The si nuses and mastoid air cells are clear. IMPRESSION: 1. Moderate size right parietal scalp hematoma without subjacent fracture. 2. No acute intracranial hemorrhage. 3. Generalized cerebral atrophy with moderate bilateral periventricular and deep white matter hypoatt enuation is likely in the setting of chronic microvascular ischemic disease. Suspected bilateral karly te medial occipital lobe infarcts. Reported By:
[2017-07-01 00:03] LABS: BASOPHILS # (AUTO) 0.1 X10^3/uL (0.0-0.1); EOSINOPHILS # (AUTO) 0.4 x10^3/uL (0.0-0.2); EOSINOPHILS % (AUTO) 3.4 % (0.9-2.9); HEMATOCRIT 32.8 % (36.0-47.0); HEMOGLOBIN 11.1 g/dL (12.0-16.0); LYMPHOCYTES # (AUTO) 2.4 X10^3/uL (1.3-2.9); LYMPHOCYTES % (AUTO) 19.4 % (21.0-51.0); MEAN CORPUSCULAR HEMOGLOBIN 32.7 pg (27.0-34.0); MEAN CORPUSCULAR HGB CONC 33.9 g/dL (33.0-35.0); MEAN CORPUSCULAR VOLUME 96.5 fL (80.0-100.0); MEAN PLATELET VOLUME 8.4 fL (7.4-11.0); MONOCYTES # (AUTO) 1.4 x10^3/uL (0.3-0.8); MONOCYTES % (AUTO) 10.8 % (0.0-13.0); NEUTROPHILS # (AUTO) 8.3 x10^3/uL (2.2-4.8); NEUTROPHILS % (AUTO) 65.4 % (42.0-75.0); PLATELET COUNT 246 X10^3/uL (150.0-450.0); RED BLOOD COUNT 3.39 X10^6/uL (3.5-5.4); RED CELL DISTRIBUTION WIDTH 13.3 % (11.6-16.5); WHITE BLOOD COUNT 12.6 X10^3/uL (3.6-10.0)
--- NOTE | 2017-07-01 00:09 | CT ---
CT lumbar spine without contrast Indication: Fall with lower back pain Comparison: None available Technique: Multiple axial images of the lumbar spine were obtained from the upper abdomen to the pelv is without administration of IV contrast. Sagittal and coronal reformats were performed and reviewed . Findings: There is a chronic bilateral L5 spondylolysis with associated moderate facet arthropathy at L4-5 and L5-S1. There is grade 1 anterolisthesis of the L5 vertebral body with approximate 2 mm anterior trans lation of the vertebral body. Severe spondylosis at L4-5 with moderate spondylosis at L5-S1 is also n oted. Remaining lumbar spine demonstrates mild multilevel spondylosis however there is no fracture or spond ylolisthesis within the remaining lumbar spine. The mild degenerative changes noted within both SI joints. IMPRESSION: 1. No acute fracture identified within the lumbar spine. There is a chronic bilateral L5 spondylolys is with grade 1 anterolisthesis of L5 and associated moderate facet arthropathy at L4-5 and L5-S1 all of which are on a degenerative/chronic basis. 2. Spondylosis and facet arthropathy L4-5 and L5-S1 cause moderate spinal canal stenosis with bilater al mild to moderate bony neural foramina narrowing at L4-5. There is mild spinal canal stenosis with severe left and moderate to severe right-sided bony neural foraminal stenosis at L5-S1. Consider bhavna elation with nonemergent follow-up lumbar spine MRI for further evaluation as clinically warranted. Reported By:
[2017-07-01 00:15] LABS: ALANINE AMINOTRANSFERASE 19 Units/L (12-78); ALBUMIN 3.5 g/dL (3.4-5.0); ALKALINE PHOSPHATASE 57 Units/L (46-116); ASPARTATE AMINO TRANSFERASE 10 Units/L (15-37); BLOOD UREA NITROGEN 24 mg/dL (7-18); CALCIUM 9.2 mg/dL (8.5-10.1); CHLORIDE 110 mmol/L (98-107); CREATININE 1.21 mg/dL (0.55-1.02); SODIUM 144 mmol/L (136-145); TOTAL PROTEIN 7.2 g/dL (6.4-8.2); eGFR BLACK RACES 54 (>60); eGFR NON BLACK RACES 45 (>60)
[2017-07-01] MEDS ORDERED: MORPHINE SULFATE INJ 2 MG INJ IVP PRN (00:35)
[2017-07-01] MEDS ORDERED: ATIVAN INJ 2 MG VIAL IVP ONE (00:40)
[2017-07-01] MEDS: NS 1000 ML 1,000 ML IV SCH (00:47)
[2017-07-01] MEDS ORDERED: HALDOL INJ IVP ONE (03:29)
[2017-07-01] MEDS ORDERED: PATIENT'S HOME MEDICATION (Pravastatin Sodium [Pravastatin Sodium] 10 MG) PO SCH (10:30)
[2017-07-01] MEDS ORDERED: TESSALON PERLES PO PRN (10:30)
[2017-07-01] MEDS ORDERED: PATIENT'S HOME MEDICATION (Oxybutynin Chloride [Ditropan Xl] 10 MG) PO SCH (10:30)
[2017-07-01] MEDS: SYNTHROID 100 mcg TAB PO SCH (11:54)
[2017-07-01] MEDS: ZESTRIL TAB 10 MG PO SCH ×2 (11:54→21:00)
[2017-07-01] MEDS: MEGACE PO SCH ×2 (11:54→18:03)
[2017-07-01] MEDS: ZOLOFT PO SCH (21:00)
[2017-07-01] MEDS: PRAVACHOL PO SCH (21:00)
[2017-07-01] MEDS ORDERED: HALDOL INJ IVP PRN (21:22)
[2017-07-02] MEDS: NS 1000 ML 1,000 ML IV SCH ×2 (00:52→03:24)
[2017-07-02] MEDS: MEGACE PO SCH ×4 (00:54→21:48)
[2017-07-02] MEDS ORDERED: HALDOL INJ IM PRN (00:57)
[2017-07-02] MEDS: VALIUM INJ IM PRN ×2 (04:46→14:10)
[2017-07-02 05:51] VITALS: BMI 21.8
[2017-07-02 07:37] LABS: BASOPHILS # (AUTO) 0.1 X10^3/uL (0.0-0.1); BASOPHILS % (AUTO) 1.1 % (0.2-1.0); EOSINOPHILS # (AUTO) 0.4 x10^3/uL (0.0-0.2); EOSINOPHILS % (AUTO) 3.6 % (0.9-2.9); HEMATOCRIT 30.6 % (36.0-47.0); HEMOGLOBIN 10.4 g/dL (12.0-16.0); LYMPHOCYTES # (AUTO) 2.5 X10^3/uL (1.3-2.9); LYMPHOCYTES % (AUTO) 21.3 % (21.0-51.0); MEAN CORPUSCULAR HEMOGLOBIN 32.2 pg (27.0-34.0); MEAN CORPUSCULAR HGB CONC 33.9 g/dL (33.0-35.0); MEAN CORPUSCULAR VOLUME 95.2 fL (80.0-100.0); MEAN PLATELET VOLUME 8.3 fL (7.4-11.0); MONOCYTES # (AUTO) 1.5 x10^3/uL (0.3-0.8); MONOCYTES % (AUTO) 12.9 % (0.0-13.0); NEUTROPHILS % (AUTO) 61.1 % (42.0-75.0); PLATELET COUNT 221 X10^3/uL (150.0-450.0); RED BLOOD COUNT 3.21 X10^6/uL (3.5-5.4); RED CELL DISTRIBUTION WIDTH 13.1 % (11.6-16.5); WHITE BLOOD COUNT 11.5 X10^3/uL (3.6-10.0)
[2017-07-02 07:50] LABS: ALANINE AMINOTRANSFERASE 20 Units/L (12-78); ALBUMIN 2.9 g/dL (3.4-5.0); ALKALINE PHOSPHATASE 56 Units/L (46-116); ASPARTATE AMINO TRANSFERASE 13 Units/L (15-37); BLOOD UREA NITROGEN 15 mg/dL (7-18); CALCIUM 8.8 mg/dL (8.5-10.1); CARBON DIOXIDE 26.5 mmol/L (21-32); CHLORIDE 107 mmol/L (98-107); COR CA(FOR HYPOALB) 9.7 mg/dL (8.5-10.1); CREATININE 1.02 mg/dL (0.55-1.02); SODIUM 140 mmol/L (136-145); TOTAL PROTEIN 6.6 g/dL (6.4-8.2); eGFR BLACK RACES > 60 (>60); eGFR NON BLACK RACES 54 (>60)
[2017-07-02] MEDS: OXYBUTYNIN CHLORIDE ER PO SCH (09:04)
[2017-07-02] MEDS: ZESTRIL TAB 10 MG PO SCH ×2 (09:04→21:48)
[2017-07-02] MEDS: VSL#3 PO SCH (09:05)
[2017-07-02] MEDS: SYNTHROID 100 mcg TAB PO SCH (09:05)
--- NOTE | 2017-07-02 11:18 | DR.H&P ---
H&P - History & Physical for Day of: H&P Date: 07/01/17 - Chief Complaint Chief Complaint: HEAD TRAUMA FROM FALL - Allergies Allergies/Adverse Reactions: Allergies Allergy/AdvReac Type Severity Reaction Status Date / Time No Known Drug Allergies Allergy Verified 03/08/17 17:38 - History of Present Illness History of Present Illness: IS A 87 YEAR OLD PATIENT OF OURS WHO PRESENTED TO THE EMERGENCY ROOM WITH COMPLAINTS OF A HEAD INJURY FROM A FALL. PATIENTS SON REPORTED THAT PATIENT WENT TO THE BATHROOM ALONE. HE HEARD A LOUD OUTCRY AND FOUND PATIENT LYING ON THE BATHROOM FLOOR. PATIENTS HEAD WAS AGAINST THE BATH TUB AND HER BACK WAS PARTIALLY ON THE CONCRETE STEP UP. PATIENT WAS NOTED TO BE MOANING IF SHE WAS IN PAIN. SHE HAS A MEDICAL HISTORY OF ANEMIA, ANXIETY, CHF, CAD, DEPRESSION, GERD, DEMENTIA, HTN, HYPOTHYROIDISM, AND HYSTERECTOMY. ON EXAMINATION, PATIENT IS NOTED WITH A LARGE HEMATOMA TO THE RIGHT OCCIPITAL PARIETAL AREA. SHE IS NOTED TO BE CONFUSED AND DOES NOT FOLLOW SIMPLE INSTRUCTIONS. PUPILS ARE PERRL. HEART IS REGULAR IN RATE AND RHYTHM. BILATERAL LUNGS ARE CLEAR TO AUSCULTATION. ABDOMEN IS FLAT, SOFT, AND NON-TENDER WITH NORMAL BOWEL SOUNDS NOTED TO ALL QUADRANTS. SHE IS NOTED WITH PARASPINOUS TENDERNESS ON PALPATION. NORMAL RANGE OF MOTION NOTED TO ALL EXTREMITIES. ON ARRIVAL TO THE ER, VITALS WERE 98.4-79-22-97%-150/96. LABS, BRAIN CT, AND LUMBAR CT OBTAINED. ABNORMAL LAB VALUES INCLUDE THE FOLLOWING: WBC 12.6, RBC 3.39, HGB 11.1, HCT 32.8, CHLORIDE 110, BUN 24, CREATININE 1.21, GFR 45, GLUCOSE 105, AST 110, A/G RATIO 0.9. BRAIN CT REPORTED: Moderate size right parietal scalp hematoma without subjacent fracture. No acute intracranial hemorrhage. Generalized cerebral atrophy with moderate bilateral periventricular and deep white matter hypoattenuation is likely in the setting of chronic microvascuolar ischemic disease. Suspected bilateral remote medial occiipital lobe infarcts. LUMBAR SPINE CT REPORTED: No acute fracture identified within the lumbar spine. There is a chronic bilateral L5 spondylolysis with grade 1 anterolisthesis of L5 and associated moderate facet arthropathy at L4-5 and L5-S1 all of which are on a degenerative/chronic basis. Spondylosis and facet arthropathy L4-5 and L5-S1 cause moderate spinal canal stenosis with bilateral mild to moderate bony neural foramina narrowing at L4- 5. There is mild spinal canal stenosis with severe left and moderate to severe right sided bony neural foraminal stenosis at L5-S1. PATIENT WAS ADMITTED FOR FURTHER TREATMENT AND EVALUATION. SHE WAS STARTED ON NORMAL SALINE AT 80ML/HR AND MORPHINE 2MG IV Q4H PRN PAIN. WE PLAN TO FOLLOW UP WITH AM LABS AND CONTINUE TO MONITOR. - Past Medical History Past Medical History: Anemia, Anxiety, CHF, Coronary Artery Disease, Depression , GERD, Hypertension, Hypothyroidism Additional Medical History: CATARACTS, TIA, DEMENTIA - Past Surgical History Surgical History: Hysterectomy - Family History Family Medical History: Cancer, Coronary Artery Disease, Sudden Cardiac - Social History Alcohol Use: None Drug Use: None - Medications Home Medications: Benzonatate [TESSALON PERLES *] 100 mg PO BID PRN 07/01/17 [History Confirmed ] Clonazepam [Clonazepam] 1 mg PO HS 07/01/17 [History Confirmed 07/01/17] L. Acidophilus/Pectin, [place] [Probiotic Acidophil-Pectin Cap] 2 cap PO DAILY [History Confirmed 07/01/17] Levothyroxine Sodium [SYNTHROID 100 mcg *] 100 mcg PO DAILY 07/01/17 [History Confirmed 07/01/17] Lisinopril [ZESTRIL *] 10 mg PO BID 07/01/17 [History Confirmed 07/01/17] Megestrol Acetate [MEGACE TAB 40 MG *] 20 mg PO TID 07/01/17 [History Confirmed 07/01/17] Multivit-Min/Iron/Folic/Lutein [Centrum Silver Women Tablet] 1 ea PO DAILY 07/01 [History Confirmed 07/01/17] Oxybutynin Chloride [Ditropan Xl] 10 mg PO DAILY 07/01/17 [History Confirmed ] Pravastatin Sodium 10 mg PO DAILY 07/01/17 [History Confirmed 07/01/17] Sertraline HCl [ZOLOFT 50 MG *] 50 mg PO HS 07/01/17 [History Confirmed 07/01/17 ] - Review of Systems Constitutional: See HPI, Weakness Eyes: denies: No Symptoms Reported, See HPI, Pain, Vision Change, Conjunctivae Inflammation, Eyelid Inflammation, Redness, Other ENT: No Symptoms Reported. denies: See HPI, Ear Pain, Ear Discharge, Nose Pain , Nose Discharge, Nose Congestion, Mouth Pain, Mouth Swelling, Throat Pain, Throat Swelling, Other Respiratory: No Symptoms Reported. denies: See HPI, Cough, Dry, Shortness of Breath, Hemoptysis, SOB with Excertion, Pleuritic Pain, Sputum, Wheezing, Other Cardiovascular: No Symptoms Reported. denies: Chest Pain, See HPI, Palpitations , Orthopnea, Paroxysmal Noc. Dyspnea, Edema, Light Headedness, Other Gastrointestinal: No Symptoms Reported. denies: See HPI, Nausea, Vomiting, Abdominal Pain, Diarrhea, Constipation, Melena, Hematochezia, Other Genitourinary: No Symptoms Reported. denies: See HPI, Dysuria, Frequency, Incontinence, Hematuria, Retention, Other Musculoskeletal: Back Pain. denies: No Symptoms Reported, See HPI, Shoulder Pain, Arm Pain, Hand Pain, Leg Pain, Foot Pain, Neck Pain, Other Skin: No Symptoms Reported, Wound (LARGE HEMATOMA TO THE RIGHT OCCIPITAL PARIETAL AREA) Neurological: Weakness, Confusion (increased altered mental status, hx dementia) - Physical Exam Vital Signs: Temperature 99.4 F Pulse Rate [Right Brachial] 88 Pulse Rate [Left Brachial] 80 Pulse Rate 79 Respiratory Rate 18 Blood Pressure [Right Arm] 136/63 Blood Pressure [Left Arm] 155/71 Blood Pressure 150/96 O2 Sat by Pulse Oximetry 94 Oriented: Unable to test (advanced dementia ) Eyes: Normal Ear: Normal. negative: Right, Left, Swelling, Ecchymosis, Hemotypanum, Abrasion , Laceration Nose: Normal. negative: Injected, Discharge, Blood, Other Throat: Normal. negative: Tonsillar Hypertrophy, Red, Exudate, Dry, Other Respiratory: Clear Throughout Cardiovascular: Normal. negative: S3, S4, Murmur : Normal. negative: Dysuria, Hematuria, Frequency, Discharge, Testicular Pain , Bleeding, , Other Auscultation: Bowel Sounds: Normal. negative: Bruit, Absent, Increased, Decreased, High Pitched, Other Palpation: Normal. negative: Spleen Enlarged, Liver Enlarged, Mass Pulsatile, Other Tenderness: Normal. negative: Rebound, Guarding, Rigidity Skin: Tender, Wound (LARGE HEMATOMA TO THE RIGHT OCCIPITAL PARIETAL AREA), Bruising Musculoskeletal: Back:Paraspinous, Tender Psychiatric: Normal Mood Description: Calm Affect: Normal Speech Pattern: Clear - Assessment/Plan (1) Traumatic hematoma of scalp Qualifiers: Encounter type: initial encounter Qualified Code(s): S00.03XA - Contusion of scalp, initial encounter Status: Acute Plan: admit, normal saline at 80ml/hr, continue to monitor
[2017-07-02] MEDS: TYLENOL 325 MG TAB PO PRN (13:00)
--- NOTE | 2017-07-02 16:35 | CT ---
Examination: CT of the head. Clinical history: Dementia, AMS, fall weeks ago. Technique: Multiple axial images were obtained from the skull base to the vertex. Dose reduction tech niques including automated exposure control (AEC) and adjustment of mA and kV were utilized. Comparison: 03/08/2017. Findings: Stable extensive nonspecific periventricular white matter changes are noted, likely due to small vess el ischemic disease. Incidental note is made of mild bilateral basal ganglia calcifications. There is no intra-, or extra-axial hemorrhage, acute infarct or mass lesion noted. There is prominence of the CSF spaces consistent with age related cerebral atrophy. The ventricles ar e symmetric about the midline, with no midline shift or mass effect noted. The posterior fossa, brain stem and orbital regions are within normal limits. Atherosclerotic calcifi cations are seen associated with the internal carotid arteries bilaterally and the vertebral arteries bilaterally. No bony or soft tissue abnormality is noted. Impression: 1. No acute infarct or hemorrhage. 2. Age-related cerebral atrophy. 3. Stable extensive nonspecific periventricular white matter changes are noted, likely due to small v essel ischemic disease. Reported By:
--- NOTE | 2017-07-02 19:03 | PCM.PROG ---
Progress Note - Progress Note for Day of Date: 07/02/17 - Subjective Subjective: WAS ADMITTED FOR A LARGE HEMATOMA TO THE RIGHT OCCIPITAL PARIETAL AREA FOLLOWING A FALL AT HOME. TODAY, SHE IS LYING IN BED WITH EYES CLOSED ON MORNING ROUNDS. FAMILY REQUEST THAT WE DO NOT WAKE HER. THEY REPORT THAT SHE HAS BEEN AGITATED AND NOTED WITH INCREASED CONFUSION THROUGHOUT THE NIGHT. THEY REPORT THAT PATIENT PULLED OUT HER IV AND REFUSES FOR IT TO BE RESTARTED. FAMILY REPORTS THAT SHE HAS HAD INCREASED CONFUSION AND AGITATION AT HOME FOR SEVERAL WEEKS, BUT IT WAS WORSE LAST NIGHT THAN IT HAS BEEN. ON EXAMINATION, SHE CONTINUES WITH HEMATOMA TO THE RIGHT OCCIPITAL PARIETAL AREA, HOWEVER, WITH A SLIGHT DECREASE IN SIZE SINCE YESTERDAY. HEART IS REGULAR IN RATE AND RHYTHM. BILATERAL LUNGS ARE CLEAR TO AUSCULTATION. ABDOMEN IS ROUND, SOFT, AND NON-TENDER WITH NORMAL BOWEL SOUNDS NOTED IN ALL QUADRANTS. HER VITALS THIS MORNING ARE 98.1-88-20-95%-136/63. ABNORMAL LAB VALUES INCLUDE THE FOLLOWING: WBC 11.5, RBC 3.21, HGB 10.4, HCT 30.6, GFR 54, AST 13, ALBUMIN 2.9. TODAY, WE WILL ORDER A BRAIN CT TO DETERMINE IF THERE HAVE BE ANY INTRACRANIAL CHANGES. OTHERWISE, WE WILL CONTINUE TO MONITOR PATIENT. WE PLAN TO FOLLOW UP WITH AM LAB[facility] AND CONTINUE TO MONITOR PATIENT. - Past Medical Family Social History Past Med/Fam/Surg Hx: No changes since H&P Allergies: Allergies No Known Drug Allergies Allergy (Verified 03/08/17 17:38) - Review of Systems ROS: No change since H&P - Vital Signs and I&O's Vital Signs: Temperature 98.4 F Pulse Rate [Right Brachial] 88 Pulse Rate [Left Brachial] 68 Pulse Rate 79 Respiratory Rate 20 Blood Pressure [Right Arm] 136/63 Blood Pressure [Left Arm] 117/64 Blood Pressure 150/96 O2 Sat by Pulse Oximetry 92 Intake and Output: Intake & Output 06/30/17 07/01/17 07/02/17 07/03/17 11:59 11:59 11:59 11:59 Intake Total 0 1320 520 Balance 0 1320 520 - Physical Exam Oriented: Unable to test (advanced dementia ) Eyes: Normal Ear: Normal. negative: Right, Left, Swelling, Ecchymosis, Hemotypanum, Abrasion , Laceration Nose: Normal. negative: Injected, Discharge, Blood, Other Throat: Normal. negative: Tonsillar Hypertrophy, Red, Exudate, Dry, Other Respiratory: Normal Cardiovascular: Normal. negative: S3, S4, Murmur : Normal. negative: Dysuria, Hematuria, Frequency, Discharge, Testicular Pain , Bleeding, , Other Auscultation: Bowel Sounds: Normal. negative: Bruit, Absent, Increased, Decreased, High Pitched, Other Palpation: Normal Tenderness: Normal. negative: Rebound, Guarding, Rigidity Skin: Tender, Wound (LARGE HEMATOMA TO THE RIGHT OCCIPITAL PARIETAL AREA), Bruising Musculoskeletal: Back:Paraspinous, Tender Psychiatric: Normal Mood Description: Calm Affect: Normal Speech Pattern: Clear - Laboratory and Diagnostics Result Diagrams: 07/02/17 07:20 07/02/17 07:20 Labs: Laboratory WBC 11.5 X10^3/uL (3.6-10.0) H 07/02/17 07:20 RBC 3.21 X10^6/uL (3.5-5.4) L 07/02/17 07:20 Hgb 10.4 g/dL (12.0-16.0) L 07/02/17 07:20 Hct 30.6 % (36.0-47.0) L 07/02/17 07:20 MCV 95.2 fL (80.0-100.0) 07/02/17 07:20 MCH 32.2 pg (27.0-34.0) 07/02/17 07:20 MCHC 33.9 g/dL (33.0-35.0) 07/02/17 07:20 RDW 13.1 % (11.6-16.5) 07/02/17 07:20 Plt Count 221 X10^3/uL (150.0-450.0) 07/02/17 07:20 MPV 8.3 fL (7.4-11.0) 07/02/17 07:20 Neut % 61.1 % (42.0-75.0) 07/02/17 07:20 Lymph % 21.3 % (21.0-51.0) 07/02/17 07:20 Jack % 12.9 % (0.0-13.0) 07/02/17 07:20 Eos % 3.6 % (0.9-2.9) H 07/02/17 07:20 Baso % 1.1 % (0.2-1.0) H 07/02/17 07:20 Neut # 7.0 x10^3/uL (2.2-4.8) H 07/02/17 07:20 Lymph # 2.5 X10^3/uL (1.3-2.9) 07/02/17 07:20 Jack # 1.5 x10^3/uL (0.3-0.8) H 07/02/17 07:20 Eos # 0.4 x10^3/uL (0.0-0.2) H 07/02/17 07:20 Baso # 0.1 X10^3/uL (0.0-0.1) 07/02/17 07:20 Absolute Nucleated RBC 0.0 /100WBC 07/02/17 07:20 Sodium 140 mmol/L (136-145) 07/02/17 07:20 Corrected Sodium TNP 07/02/17 07:20 Potassium 4.1 mmol/L (3.5-5.1) 07/02/17 07:20 Chloride 107 mmol/L (98-107) 07/02/17 07:20 Carbon Dioxide 26.5 mmol/L (21-32) 07/02/17 07:20 BUN 15 mg/dL (7-18) 07/02/17 07:20 Creatinine 1.02 mg/dL (0.55-1.02) 07/02/17 07:20 Est GFR (MDRD) Af Amer > 60 (>60) 07/02/17 07:20 Est GFR (MDRD) Non-Af 54 (>60) L 07/02/17 07:20 Glucose 85 mg/dL (65-99) 07/02/17 07:20 Calcium 8.8 mg/dL (8.5-10.1) 07/02/17 07:20 Corrected Calcium 9.7 mg/dL (8.5-10.1) 07/02/17 07:20 Total Bilirubin 0.40 mg/dL (0.2-1.0) 07/02/17 07:20 AST 13 Units/L (15-37) L 07/02/17 07:20 ALT 20 Units/L (12-78) 07/02/17 07:20 Alkaline Phosphatase 56 Units/L (46-116) 07/02/17 07:20 Total Protein 6.6 g/dL (6.4-8.2) 07/02/17 07:20 Albumin 2.9 g/dL (3.4-5.0) L 07/02/17 07:20 Globulin 3.7 g/dL (2.5-4.5) 07/02/17 07:20 Albumin/Globulin Ratio 0.8 Ratio (1.1-2.1) L 07/02/17 07:20 - Plan (1) Traumatic hematoma of scalp Status: Acute Qualifiers: Encounter type: initial encounter Qualified Code(s): S00.03XA - Contusion of scalp, initial encounter Plan: admit, normal saline at 80ml/hr, repeat brain CT, continue to monitor (2) Lumbar pain Status: Acute Plan: continue morphine 2mg iv q4h prn, continue to monitor (3) Dementia Status: Acute Qualifiers: Dementia type: vascular dementia Dementia behavioral disturbance: with behavioral disturbance Qualified Code(s): F01.51 - Vascular dementia with behavioral disturbance Plan: continue haldol, continue valium, continue to monitor (4) Hypothyroid Status: Acute Qualifiers: Hypothyroidism type: acquired Qualified Code(s): E03.9 - Hypothyroidism, unspecified Plan: continue synthroid, continue to monitor (5) Hyperlipidemia Status: Acute Qualifiers: Hyperlipidemia type: mixed hyperlipidemia Qualified Code(s): E78.2 - Mixed hyperlipidemia Plan: continue pravachol, continue to monitor (6) Depression Status: Acute Qualifiers: Depression Type: major depressive disorder Major depression recurrence: recurrent Active/Remission status: remission status unspecified Qualified Code(s): F33.9 - Major depressive disorder, recurrent, unspecified Plan: continue zoloft, continue to monitor (7) Hypertension Status: Acute Qualifiers: Hypertension type: essential hypertension Qualified Code(s): I10 - Essential (primary) hypertension Plan: continue lisinopril, continue to monitor
[2017-07-02] MEDS: ZOLOFT PO SCH (21:48)
[2017-07-02] MEDS: PRAVACHOL PO SCH (21:49)
[2017-07-03] MEDS: NS 1000 ML 1,000 ML IV SCH ×2 (00:27→05:32)
[2017-07-03 01:49] LABS: BILIRUBIN,URINE NEGATIVE (NEGATIVE); BLOOD/HEMOGLOBIN,URINE 1+ (NEGATIVE); GLUCOSE, URINE NEGATIVE (NEGATIVE); KETONES,URINE NEGATIVE (NEGATIVE); LEUKOCYTE ESTERASE ,URINE 1+ (NEGATIVE); NITRITES,URINE NEGATIVE (NEGATIVE); PROTEIN,URINE NEGATIVE (NEGATIVE); UROBILINOGEN,URINE NORMAL (NORMAL)
[2017-07-03 01:59] LABS: APPEARANCE,URINE CLEAR (CLEAR); BACTERIA,URINE NEGATIVE /HPF (NEGATIVE); COLOR,URINE YELLOW (YELLOW); RBC,URINE RARE /HPF (NEGATIVE); SQUAMOUS EPITHELIAL CELL,UR RARE /HPF (NEGATIVE)
[2017-07-03] MEDS: MEGACE PO SCH ×2 (05:33→13:00)
[2017-07-03 05:40] LABS: BASOPHILS % (AUTO) 0.6 % (0.2-1.0); EOSINOPHILS # (AUTO) 0.5 x10^3/uL (0.0-0.2); HEMATOCRIT 30.8 % (36.0-47.0); HEMOGLOBIN 10.5 g/dL (12.0-16.0); LYMPHOCYTES # (AUTO) 2.4 X10^3/uL (1.3-2.9); LYMPHOCYTES % (AUTO) 28.4 % (21.0-51.0); MEAN CORPUSCULAR HEMOGLOBIN 32.6 pg (27.0-34.0); MEAN CORPUSCULAR HGB CONC 34.1 g/dL (33.0-35.0); MEAN CORPUSCULAR VOLUME 95.5 fL (80.0-100.0); MEAN PLATELET VOLUME 8.7 fL (7.4-11.0); MONOCYTES % (AUTO) 11.8 % (0.0-13.0); NEUTROPHILS # (AUTO) 4.5 x10^3/uL (2.2-4.8); NEUTROPHILS % (AUTO) 53.2 % (42.0-75.0); PLATELET COUNT 232 X10^3/uL (150.0-450.0); RED BLOOD COUNT 3.23 X10^6/uL (3.5-5.4); RED CELL DISTRIBUTION WIDTH 13.1 % (11.6-16.5); WHITE BLOOD COUNT 8.6 X10^3/uL (3.6-10.0)
[2017-07-03 05:50] LABS: ALANINE AMINOTRANSFERASE 17 Units/L (12-78); ALBUMIN 2.8 g/dL (3.4-5.0); ALKALINE PHOSPHATASE 52 Units/L (46-116); ASPARTATE AMINO TRANSFERASE 10 Units/L (15-37); BLOOD UREA NITROGEN 14 mg/dL (7-18); CALCIUM 8.7 mg/dL (8.5-10.1); CARBON DIOXIDE 24.1 mmol/L (21-32); CHLORIDE 108 mmol/L (98-107); COR CA(FOR HYPOALB) 9.7 mg/dL (8.5-10.1); CREATININE 0.96 mg/dL (0.55-1.02); SODIUM 141 mmol/L (136-145); TOTAL PROTEIN 6.3 g/dL (6.4-8.2); eGFR BLACK RACES > 60 (>60); eGFR NON BLACK RACES 58 (>60)
[2017-07-03] MEDS: ZESTRIL TAB 10 MG PO SCH (09:30)
[2017-07-03] MEDS: VSL#3 PO SCH (09:30)
[2017-07-03] MEDS: OXYBUTYNIN CHLORIDE ER PO SCH (09:30)
[2017-07-03] MEDS: SYNTHROID 100 mcg TAB PO SCH (09:31)
[2017-07-03] MEDS ORDERED: COLACE CAP 100 MG PO SCH (11:00)
[2017-07-03 12:37] VITALS: BP 160/67
[2017-07-03] MEDS: TYLENOL 325 MG TAB PO PRN (12:37)
== END 2017-07-03 16:10 | disposition hospice, home (50) | DRG 605 ==
LOC: ER 22:44 → MED/SURG 07-01 00:30
PROVIDERS: ADMIT Internal Medicine; ATTEND Internal Medicine
DX: S00.03XA Contusion of scalp, initial encounter (principal); F33.8 Other recurrent depressive disorders; W18.39XA Other fall on same level, initial encounter; Y92.091 Bathroom in other non-institutional residence as the place of occurrence of the external cause; I25.10 Atherosclerotic heart disease of native coronary artery without angina pectoris; K21.9 Gastro-esophageal reflux disease without esophagitis; I10 Essential (primary) hypertension; E03.8 Other specified hypothyroidism; R74.8 Abnormal levels of other serum enzymes
CPT/HCPCS: 36415; 70450; 72131; 80053; 81001; 85025; 94760; 96365; 96374; 99283; 99284; A4216; A4222; S0179; G0378; J1630; J2060; J2270; J3360